=== PATIENT | female | born 1995 ===

== ENCOUNTER 2017-06-11 18:43 | Inpatient (IN) | payer MEDICAID ==
[2017-06-11 20:50] LABS: URINE BILIRUBIN NEGATIVE (NEGATIVE); URINE BLOOD NEGATIVE (NEGATIVE); URINE GLUCOSE (UA) NEGATIVE (NEGATIVE); URINE LEUKOCYTE ESTERASE NEGATIVE Leu/uL (NEGATIVE); URINE NITRATE NEGATIVE (NEGATIVE); URINE PROTEIN 100 mg/dL (<30 mg/dL); URINE UROBILINOGEN 0.2 E.U./dL (<1 E.U./dL)
[2017-06-11 20:55] LABS: URINE APPEARANCE SL CLOUDY (CLEAR); URINE COLOR YELLOW (YELLOW)
[2017-06-11 21:07] LABS: URINE BACTERIA FEW (NEG); URINE CALCIUM OXALATE CRYSTALS OCC /hpf
[2017-06-11 21:16] LABS: BASO # 0.02 K/mm3 (0.0-2.0); BASO % 0.2 % (0.0-3.0); EOS # 0.1 (0.0-0.7); EOS % 0.5 % (1.5-5.0); GRAN # 8.59 (1.4-6.5); GRAN % 76.4 % (50.0-68.0); HEMOGLOBIN 15.4 g/dL (12.0-16.0); LYMPH # 1.9 (1.2-3.4); LYMPH % 16.9 % (22.0-35.0); MEAN CELL VOLUME 89.8 fl (80.0-105.0); MEAN CORPUSCULAR HEMOGLOBIN 30.7 pg (25.0-35.0); MEAN CORPUSCULAR HGB CONC 34.2 g/dl (31.0-37.0); MEAN PLATELET VOLUME 10.1 fl (7.0-11.0); MONO # 0.7 (0.1-0.6); RBC 5.01 10^6/uL (3.5-6.1); RED CELL DISTRIBUTION WIDTH 12.8 % (11.5-14.5); WHITE BLOOD COUNT 11.2 10^3/ul (4.5-11.0)
[2017-06-11 21:25] LABS: ACETAMINOPHEN < 10.0 ug/ml (10.0-20.0); SALICYLATE < 1 mg/dL (2.0-20.0)
[2017-06-11 21:26] LABS: ALB/GLOB RATIO 1.5 (1.1-1.8); ALT/SGPT 32 U/L (7-56); AST/SGOT 34 U/L (14-36); BLOOD UREA NITROGEN 11 mg/dL (7-21); CALCIUM 10.1 mg/dL (8.4-10.5); GFR AFRICAN-AMERICAN > 60; GFR NON-AFRICAN AMERICAN > 60
[2017-06-11 21:31] LABS: BARBITURATES, UR NEGATIVE (NEGATIVE); BENZODIAZEPINES, UR NEGATIVE (NEGATIVE); OPIATES, UR NEGATIVE (NEGATIVE); PHENCYCLIDINE, UR NEGATIVE (NEGATIVE)
[2017-06-11 22:24] VITALS: O2SAT 100
[2017-06-11] MEDS ORDERED: Magnesium Hydroxide Susp 30 ml UD PO PRN (23:05)
[2017-06-11] MEDS ORDERED: Alum-Mag Hydrox-Simethicone Susp (30 mL) PO PRN (23:05)
--- NOTE | 2017-06-12 01:27 | PCM.BM ---
<LisaviviKeishalouis - Last Filed: 06/12/17 01:24> Treatment Plan Problems - Problems identified on initial assessmt Altered Thought Process Date Initiated: 06/11/17 Time Initiated: 22:45 Assessment reference: NA Status: Active Anxiety Date Initiated: 06/11/17 Time Initiated: 22:45 Assessment reference: NA Status: Active Medication nonadherence Date Initiated: 06/11/17 Time Initiated: 22:45 Assessment reference: NA Status: Active Altered Sleep Patterns Date Initiated: 06/11/17 Time Initiated: 22:45 Assessment reference: NA Status: Active Treatment assets and liabiliti Patient Assests: cooperative, self-reliant, ADL independent, physically healthy , negotiates basic needs, cognitively intact Patient Liabilities: financial problems, relationship conflicts - Milieu Protocol Maintain good personal hygiene: daily Encourage regular showers, daily Remind patient to perform daily oral care, daily Assist patient to perform ADL's Conduct patient checks and document Observation sheet: Q15 minutes Maintain personal safety: every shift Educate patient to report safety concerns to staff, every shift Monitor environment for contraband/sharps Medication safety: Monitor for expected outcome, potential side effects: every shift, Assess barriers to learning: every shift, Assess readiness for medication education: every shift Discharge/Continuing Care - Education Needs Education Needs: Patient Medication, Patient Diagnosis/Disease Process, Patient Coping Skills, Patient Community resources, Patient Activities of Daily Living, Patient Health Practices/Safety, Patient Personal Hygiene/Grooming, Patient Aftercare Safety Plan - Discharge Discharge Criteria: Tolerates medication w/o severe side effects, Free of Suicidal thoughts, Free of paranoid thoughts, Normal sleep pattern, Ability to care for self <Elisa Alvarez - Last Filed: 06/13/17 05:38> - Diagnosis (1) Bipolar 1 disorder Status: Acute Interventions: group, milieu and supportive tx [place] 300 mg po tid for mood control, check lithium levels on unit Klonopin 1 mg [facility]HS for mood control Risperdal 0.5 [facility]HS for mood control and disorganization Sonata 5 mg HS prn:insomnia Social outreach to family and to psychiatric provider 06/13/17 05:37 <Bhumika Sharma - Last Filed: 06/14/17 16:17> Family Contact Family involvement: Family/SO is involved Family contact: Patient agrees to contact Family contact name: Erica Mei(mother) Family contacted how many times per week?: 2 <Janki Stearns - Last Filed: 06/14/17 16:25>
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
[2017-06-12 08:52] LABS: GLUCOSE,FASTING 95 mg/dL (65-110); HDL CHOLESTEROL 59 mg/dL (29-60)
[2017-06-12 09:02] LABS: LDL CHOLESTEROL 69 mg/dL (0-129)
--- NOTE | 2017-06-12 10:11 | RAD ---
HISTORY: pes eval COMPARISON: No prior. FINDINGS: LUNGS: No active pulmonary disease. PLEURA: No significant pleural effusion identified, no pneumothorax apparent. CARDIOVASCULAR: Normal. OSSEOUS STRUCTURES: No significant abnormalities. VISUALIZED UPPER ABDOMEN: Normal. OTHER FINDINGS: None. IMPRESSION: No active disease.
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
--- NOTE | 2017-06-12 10:21 | CARD ---
APPROVED REPORT EKG Measurement Heart [id number] <Conclusion> Sinus tachycardia
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
[2017-06-14] MEDS ORDERED: DiphenhydrAMINE 50 mg/ml Inj IM PRN (16:47)
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
[2017-06-17 06:42] VITALS: BP 87/48; PULSE 90; RESP 16; TEMP 98.4
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
== END 2017-06-17 15:15 | disposition left against medical advice (07) | DRG 430 ==
LOC: ED 18:43 → ERH 22:07 → PSYC 22:51
PROVIDERS: ADMIT Psychiatry & Neurology Psychiatry; ATTEND Psychiatry & Neurology Psychiatry
DX: F25.9 Schizoaffective disorder, unspecified (principal); F22 Delusional disorders; F31.9 Bipolar disorder, unspecified; D72.829 Elevated white blood cell count, unspecified; Z79.899 Other long term (current) drug therapy; Z87.891 Personal history of nicotine dependence; Z91.14 Patient's other noncompliance with medication regimen; Z91.19 Patient's noncompliance with other medical treatment and regimen; R40.2412 Glasgow coma scale score 13-15, at arrival to emergency department